=== PATIENT | female | born 1970 | race Native Hawaiian/Other Pacific Islander ===

== ENCOUNTER 2016-10-02 09:59 | Outpatient (CLI) | payer BC ==
[~2016-10-02 09:59] MED LIST: AMBIEN5 MG PO; BUPROPN HCL300 MG PO; CETI10TA PO; DEXL60CA4 PO; FOLI1TAB26 PO; HYDR200T3 PO; MAXALT-MLT10 MG OR; PILOCARPINE1 % OP; STOOL SOFTNR100 MG OR; SYNTHROID175 MCG PO; TOPAMAX100 MG OR; ZANTAC300 MG PO
== END 2016-10-02 19:36 | disposition home or self-care (01) ==
LOC: RESP 09:59
DX: R06.02 Shortness of breath (principal); R53.83 Other fatigue
CPT/HCPCS: 94664

== ENCOUNTER 2016-10-04 09:47 | Outpatient (CLI) | payer BC | END 2016-10-04 10:50 | disposition home or self-care (01) | LOC: RAD 09:47 | DX: M35.00 Sjogren syndrome, unspecified (principal); R06.02 Shortness of breath; R94.2 Abnormal results of pulmonary function studies ==

== ENCOUNTER 2019-02-18 09:21 | Outpatient (CLI) | payer BC | END 2019-02-18 22:25 | disposition home or self-care (01) | LOC: RESP 09:21 | DX: M35.01 Sjogren syndrome with keratoconjunctivitis (principal) ==

== ENCOUNTER 2020-11-23 12:00 | Outpatient (CLI) | payer BC | END 2020-11-23 23:00 | disposition home or self-care (01) | LOC: LAB 12:00 | PROVIDERS: ATTEND Internal Medicine | DX: R43.0 Anosmia (principal); Z11.52 Encounter for screening for COVID-19 | CPT/HCPCS: 87635; G2023; U0003 ==

== ENCOUNTER 2020-11-29 10:32 | Outpatient (CLI) | payer BC | END 2020-11-29 20:34 | disposition home or self-care (01) | LOC: RAD 10:32 | PROVIDERS: ATTEND Internal Medicine | DX: J40 Bronchitis, not specified as acute or chronic (principal) ==

== ENCOUNTER 2020-12-06 16:27 | Emergency (ER) | payer BC ==
[~2020-12-06] VITALS: Ht 167.6 cm; Wt 92.1 kg
[2020-12-06 17:46] LABS: PLATELET COUNT 267 K/uL (152-353)
[2020-12-06 17:54] LABS: POTASSIUM 3.9 mmol/L (3.6-5.2)
[2020-12-06 19:20] VITALS: BP 130/79; TEMP 98.7
== END 2020-12-06 19:20 | disposition home or self-care (01) ==
LOC: ED 16:27
PROVIDERS: Emergency Medicine Emergency Medical Services
DX: U07.1 COVID-19 (principal); J12.82 Pneumonia due to coronavirus disease 2019
CPT/HCPCS: 36415; 80048; 85027; 87502; 87635; 96360; 96365; 96375; 99284; J0696; J1100; U0003

== ENCOUNTER 2021-01-30 15:52 | Outpatient (CLI) | payer BC | END 2021-01-30 20:27 | disposition home or self-care (01) | LOC: US 15:52 | PROVIDERS: ATTEND Internal Medicine | DX: E03.9 Hypothyroidism, unspecified (principal) ==

== ENCOUNTER 2021-02-20 10:54 | Outpatient (CLI) | payer BC ==
[~2021-02-20] VITALS: Ht 167.6 cm; Wt 89.4 kg
[2021-02-20 11:20] VITALS: BP 110/75; TEMP 98
[2021-02-20 11:56] LABS: PLATELET COUNT 205 K/uL (152-353)
[2021-02-20 12:11] LABS: POTASSIUM 4.4 mmol/L (3.6-5.2)
== END 2021-02-20 21:01 | disposition home or self-care (01) ==
LOC: LABW 10:54 → LAB 10:54 → INF 10:54
PROVIDERS: ATTEND Internal Medicine
DX: E86.0 Dehydration (principal)
CPT/HCPCS: 36591; 80053; 82150; 83690; 85027; 96365; 96366; J3490

== ENCOUNTER 2021-02-22 15:13 | Outpatient (CLI) | payer BC | END 2021-02-22 20:32 | disposition home or self-care (01) | LOC: RESP 15:13 | PROVIDERS: ATTEND Nurse Practitioner Family | DX: M35.00 Sjogren syndrome, unspecified (principal); M35.01 Sjogren syndrome with keratoconjunctivitis; R94.2 Abnormal results of pulmonary function studies; Z79.899 Other long term (current) drug therapy ==

== ENCOUNTER 2021-07-20 10:18 | Outpatient (CLI) | payer BC | END 2021-07-20 22:07 | disposition home or self-care (01) | LOC: RAD 10:18 | PROVIDERS: ATTEND Nurse Practitioner Family | DX: M25.551 Pain in right hip (principal); M25.552 Pain in left hip; M54.50 Low back pain, unspecified ==

== ENCOUNTER 2021-10-04 12:59 | Outpatient (CLI) | payer BC | END 2021-10-04 18:56 | disposition home or self-care (01) | LOC: CT 12:59 | PROVIDERS: ATTEND Nurse Practitioner Family | DX: R10.12 Left upper quadrant pain (principal); R19.4 Change in bowel habit | CPT/HCPCS: 36415; 82565; 84520; Q9963 ==

== ENCOUNTER 2021-12-06 08:32 | Outpatient (CLI) | payer BC | END 2021-12-06 18:47 | disposition home or self-care (01) | LOC: NM 08:32 | PROVIDERS: ATTEND Internal Medicine Gastroenterology | DX: R10.12 Left upper quadrant pain (principal) | CPT/HCPCS: A9541 ==

== ENCOUNTER 2022-04-25 11:06 | Outpatient (CLI) | payer BC | END 2022-04-25 19:21 | disposition home or self-care (01) | LOC: RESP 11:06 | PROVIDERS: ATTEND Nurse Practitioner Family | DX: M35.01 Sjogren syndrome with keratoconjunctivitis (principal); M35.05 Sjogren syndrome with inflammatory arthritis; Z79.899 Other long term (current) drug therapy ==